=== PATIENT | male | born 1990 | race Caucasian/White ===

== ENCOUNTER 2020-02-25 20:01 | Emergency (ER) | payer BC, OTHER ==
[2020-02-25 20:10] VITALS: BP 153/106; PULSE 78
--- NOTE | 2020-02-25 20:24 | EDM.PDOC ---
ED HPI GENERAL MEDICAL PROBLEM - General Chief Complaint: Eye Problems Stated Complaint: EYE PAIN Time Seen by Provider: 02/25/20 20:14 Source of Information: Reports: Patient History Limitations: Reports: No Limitations - History of Present Illness INITIAL COMMENTS - FREE TEXT/NARRATIVE: 29-year-old male presents to the ED for evaluation of left eye pain. He states this is been intermittent more burning sharp and stabbing but also a pressure component to the eye pain over the last 2 to 3 days. He reports increased clearish discharge from the eye over the last 2 days. Works in the [employer] long hours but does not believe he got anything in his eye. The eye is mildly sensitive to light. He wears sunglasses all day long. He has appreciated increased purulent discharge in the medial canthus of the eye particularly noticed in the mornings the last 2 days. The eye is not itching or feel like it needs to be rubbed. He does not wear contact lenses. 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 Onset: Gradual Onset Date: 02/22/20 Duration: Day(s):, Getting Worse Location: Reports: Face (Left eye burning discomfort) Quality: Reports: Ache, Burning Severity: Moderate (Remittent pain.) Improves with: Reports: None Worsens with: Reports: Other Context: Denies: Activity (Being at the sunlight and standing up bending over seems to make the pressure or pain worse.), Exercise, Lifting, Sick Contact, Trauma, Other Associated Symptoms: Denies: No Other Symptoms, Confusion, Chest Pain, Cough, cough w sputum, Diaphoresis, Fever/Chills, Headaches, Loss of Appetite, Malaise, Shortness of Breath, Syncope Treatments CROSS CUT SAWYER: Reports: Other (see below) (1.) - Related Data Allergies Allergy/AdvReac Type Severity Reaction Status Date / Time No Known Allergies Allergy Verified 02/25/20 20:10 Home Meds: Home Meds Gentamicin [Garamycin 0.3% Ophth Soln] 5 ml EYELF QID #1 bottle 02/25/20 [Rx] Past Medical History - Past Health History Medical/Surgical History: Denies Medical/Surgical History HEENT History: Reports: None Cardiovascular History: Reports: None Respiratory History: Reports: None Gastrointestinal History: Reports: None Genitourinary History: Reports: None Neurological History: Reports: None Psychiatric History: Reports: None Endocrine/Metabolic History: Reports: None Hematologic History: Reports: None Immunologic History: Reports: None Oncologic (Cancer) History: Reports: None Dermatologic History: Reports: None - Infectious Disease History Infectious Disease History: Reports: None - Past Surgical History Musculoskeletal Surgical History: Reports: Other (See Below) Other Musculoskeletal Surgeries/Procedures:: Right Pinky Surgery Social & Family History - Family History Family Medical History: Noncontributory - Tobacco Use Smoking Status *Q: Never Smoker - Caffeine Use Caffeine Use: Reports: Coffee, Soda - Recreational Drug Use Recreational Drug Use: No - Living Situation & Occupation Living situation: Reports: Single Occupation: Employed ED ROS GENERAL - Review of Systems Review Of Systems: See Below Constitutional: Reports: Fatigue. Denies: Fever, Chills, Malaise, Weakness, Weight Loss HEENT: Reports: Eye Discharge (Greenish discharge as well as clear discharge from the left eye for the last couple of days.), Glasses. Denies: Contact Lens es (Chronically as he works 100 hours a week gets very little sleep.) Respiratory: Reports: No Symptoms Cardiovascular: Reports: No Symptoms Endocrine: Reports: No Symptoms GI/Abdominal: Reports: No Symptoms : Reports: No Symptoms Musculoskeletal: Reports: No Symptoms Skin: Reports: No Symptoms Neurological: Reports: No Symptoms Psychiatric: Reports: No Symptoms Hematologic/Lymphatic: Reports: No Symptoms Immunologic: Reports: No Symptoms ED EXAM GENERAL W FULL EYE - Physical Exam Exam: See Below Exam Limited By: No Limitations General Appearance: Alert, WD/WN, No Apparent Distress, Other (Temperature is 36.4 heart rate is 78 and sinus respiratory was 16 with O2 sats of 99% room air BP initially was elevated 153 106 but came down nicely to 138 94 before discharge.) Eye Exam: Left Eye: Conjunctival Injection (Moderate particularly the blepharal margins of the eyelids.), Normal Fundi, PERRL Visual Acuity (R) 20/: 13 Visual Acuity (L) 20/: 13 With Correction: No Eyelids: Left: Lid Everted for Exam (No foreign bodies identified.), Bilateral: Erythema Conjunctiva & Sclera: Left: Injected (Mildly but more so on the blepharal margins of both upper and lower eyelids.) Cornea Exam: Bilateral: Normal Appearance Extraocular Movements: Bilateral: Intact Pupillary Size: Bilateral: 7 mm Pupillary Reaction: Bilateral: Brisk (With no eye pain on the left side when shining the light into the right pupil.) Anterior Chamber: Left: Normal Appearance Posterior Chamber: Left: Normal Funduscopic Comments: Purulent greenish discharge from the medial canthus of the left eye appreciated. Removed with a Q-tip. Course - Vital Signs Last Recorded V/S: Last Vital Signs Temp 36.4 C 02/25/20 20:07 Pulse 78 02/25/20 20:07 Resp 16 02/25/20 20:07 BP 153/106 H 02/25/20 20:07 Pulse Ox 99 02/25/20 20:07 - Radiology Interpretation Free Text/Narrative:: 29-year-old male presents to the ED with intermittent sharp pain in his left eye and pressure. No change in visual acuity. Symptoms have been present for last couple of days. Associated with green purulent discharge most notable for the patient first thing in the morning. 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 Examination revealed feels the fundi and corneas to be normal. There is diffuse inflammation of the upper and lower blepharal margins of the left eye with purulent greenish discharge medial canthus of the eye. Mild diffuse conjunctivitis. No corneal abrasions or foreign bodies identified. Treated with gentamicin eyedrops 2 drops to the left eye 4 times daily for the next 4 days to clear up infection. He is to follow- up if not markedly improved in 36 hours time. Departure - Departure Time of Disposition: 20:24 Disposition: Home, Self-Care 01 Condition: Fair Clinical Impression: Bacterial conjunctivitis of left eye Conjunctivitis Qualifiers: Conjunctivitis type: acute Acute conjunctivitis type: bacterial Laterality: left Qualified Code(s): H10.32 - Unspecified acute conjunctivitis, left eye - Discharge Information *PRESCRIPTION DRUG MONITORING PROGRAM REVIEWED*: Not Applicable *COPY OF PRESCRIPTION DRUG MONITORING REPORT IN PATIENT EJ: Not Applicable Prescriptions: Gentamicin [Garamycin 0.3% Ophth Soln] 5 ml EYELF QID #1 bottle Instructions: Bacterial Conjunctivitis, Adult, [id number] Referrals: PCP,None [Primary Care Provider] - Forms: ED Department Discharge Additional Instructions: Evaluation in the emergency room today in regards to left eye pressure/pain for the last 2 days. Increased discharge from the eye including some purulent discharge appreciated as well. Diffuse redness of the eye appreciated as well on your exam. No history of contact lens wear. Evaluation in the emergency room reveals purulent greenish discharge in the medial canthus of the eye. Inflammation of both upper and lower blepharal conjunctiva [employer] on examination with no foreign bodies identified. The cornea is clear. Clinically the intraocular pressure is about equal. No clinical evidence of glaucoma. Treatment to be antibiotic drops Garamycin 2 drops to the left eye 4 times daily for the next 4 days to clear up infection. Expect marked improvement over the next 24 to 36 hours. If not you should be reviewed by an eye doctor/brick grader. Sepsis Event Note (ED) - Evaluation Sepsis Screening Result: No Definite Risk - Focused Exam Vital Signs: Vital Signs Temp Pulse Resp BP Pulse Ox 02/25/20 20:07 36.4 C 78 16 153/106 H 99
== END 2020-02-25 20:40 | disposition home or self-care (01) ==
LOC: JD.ED 20:01
DX: H10.32 Unspecified acute conjunctivitis, left eye (principal)
CPT/HCPCS: 99283